=== PATIENT | male | born 1980 | race Caucasian/White ===

== ENCOUNTER 2019-01-23 01:54 | Emergency (ER) | payer MEDICAID ==
[2019-01-23] MEDS ORDERED: Lactated Ringers 1,000 ML IV SCH (02:30)
--- NOTE | 2019-01-23 02:33 | EDM.PDOC ---
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 States he is doing well on day of discharge which was today tolerating diet ambulating woke up this evening in significant pain did have a fever at home had taken Tylenol denies any difficulty breathing no chest pain no shortness of breath, EMS did provide fentanyl in route as well as Zofran which provided relief for his nausea and improvement in pain control Back Pain Score (Numeric/FACES): 5 - Related Data Allergies Allergy/AdvReac Type Severity Reaction Status Date / Time Sulfa (Sulfonamide Allergy Rash Verified 01/23/19 02:02 Antibiotics) Home Meds: Home Meds Sertraline [Zoloft] 100 mg PO DAILY 02/20/15 [History] Acetaminophen [Acetaminophen Extra Strength] 1,000 mg PO Q6H PRN 01/23/19 [ History] Cyclobenzaprine HCl 5 mg PO TID PRN 01/23/19 [History] oxyCODONE HCl [Oxycodone HCl] 5 - 10 mg PO Q4H PRN 01/23/19 [History] Past Medical History Gastrointestinal History: Reports: GERD Musculoskeletal History: Reports: Back Pain, Chronic, Fracture Psychiatric History: Reports: Anxiety, Depression - Infectious Disease History Infectious Disease History: Reports: Chicken Pox, Mononucleosis - Past Surgical History GI Surgical History: Reports: Cholecystectomy Male Surgical History: Reports: Other (See Below) Other Male Surgeries/Procedures: ktwisted testicles Neurological Surgical History: Reports: Lumbar Spine, Sacral Spine, Spinal Fusion Musculoskeletal Surgical History: Reports: Arthroscopic Knee Social & Family History - Tobacco Use Smoking Status *Q: Never Smoker - Caffeine Use Caffeine Use: Reports: None - Recreational Drug Use Recreational Drug Use: Yes ED ROS GENERAL - Review of Systems Review Of Systems: See Below Constitutional: Reports: Fever, Chills HEENT: Reports: No Symptoms Respiratory: Reports: No Symptoms Cardiovascular: Reports: No Symptoms GI/Abdominal: Reports: No Symptoms : Reports: No Symptoms Musculoskeletal: Reports: No Symptoms Skin: Reports: No Symptoms Neurological: Reports: No Symptoms ED EXAM, SEPSIS - Physical Exam Exam: See Below Exam Limited By: No Limitations General Appearance: Alert, Mild Distress Respiratory/Chest: No Respiratory Distress, Lungs Clear, Normal Breath Sounds, No Accessory Muscle Use Cardiovascular: Regular Rate, Rhythm, No Murmur GI/Abdominal Exam: Soft, Non-Tender Back: Normal Inspection, Decreased Range of Motion, Other (Surgical wound is clean dry and intact). No: CVA Tenderness (R), CVA Tenderness (L) Extremities: Normal Inspection, Normal Range of Motion, Non-Tender Course - Vital Signs Last Recorded V/S: Last Vital Signs Temp 99.8 F 01/23/19 03:48 Pulse 102 H 01/23/19 03:48 Resp 20 01/23/19 03:48 BP 134/75 01/23/19 03:48 Pulse Ox 96 01/23/19 03:48 - Orders/Labs/Meds Orders: Active Orders 24 hr Category Date Time Status Vital Signs [RC] Q1H Care 01/23/19 02:27 Active CULTURE BLOOD [BC] Urgent Lab 01/23/19 02:30 Received CULTURE BLOOD [BC] Urgent Lab 01/23/19 02:38 Received CULTURE URINE [RM] Urgent Lab 01/23/19 04:22 Ordered HYDROmorphone [Dilaudid] Med 01/23/19 04:22 Once 1 mg IVPUSH ONETIME ONE Lactated Ringers [Ringers, Lactated] 1,000 ml Med 01/23/19 02:30 Active IV ASDIRECTED Blood Culture x2 Reflex Set [OM.PC] Urgent Oth 01/23/19 02:27 Ordered Medication Orders Lactated Ringer's (Ringers, Lactated) 1,000 mls @ 999 mls/hr IV ASDIRECTED LEELA Last Admin: 01/23/19 02:38 Dose: 999 mls/hr Labs: Laboratory Tests 01/23/19 01/23/19 01/23/19 Range/Units 02:30 02:30 02:30 WBC 10.0 (4.5-11.0) K/uL RBC 3.91 L (4.30-5.90) M/uL Hgb 11.9 L D (12.0-15.0) g/dL Hct 36.2 L (40.0-54.0) % MCV 93 (80-98) fL MCH 30 (27-31) pg MCHC 33 (32-36) % Plt Count 213 (150-400) K/uL Neut % (Auto) 74 H (36-66) % Lymph % (Auto) 14 L (24-44) % [place] % (Auto) 10 H (2-6) % Eos % (Auto) 2 (2-4) % Baso % (Auto) 0 (0-1) % Sodium 136 L (140-148) mmol/L Potassium 3.7 (3.6-5.2) mmol/L Chloride 98 L (100-108) mmol/L Carbon Dioxide 27 (21-32) mmol/L Anion Gap 14.7 H (5.0-14.0) mmol/L BUN 9 (7-18) mg/dL Creatinine 1.2 (0.8-1.3) mg/dL Est Cr Clr Drug Dosing 94.33 mL/min Estimated GFR (MDRD) > 60 (>60) Glucose 112 H (74-106) mg/dL Lactic Acid 1.4 (0.4-2.0) mmol/L Calcium 8.3 L (8.5-10.1) mg/dL Total Bilirubin 0.3 D (0.2-1.0) mg/dL AST 26 (15-37) U/L ALT 31 (12-78) U/L Alkaline Phosphatase 53 (46-116) U/L C-Reactive Protein 6.76 H (0.0-0.3) mg/dL Total Protein 6.4 (6.4-8.2) g/dL Albumin 3.0 L (3.4-5.0) g/dL Globulin 3.4 (2.3-3.5) g/dL Albumin/Globulin Ratio 0.9 L (1.2-2.2) Urine Color Urine Appearance Urine pH (4.5-8.0) Ur Specific [place] (1.008-1.030) Urine Protein (NEGATIVE) mg/dL Urine Glucose (UA) (NEGATIVE) mg/dL Urine Ketones (NEGATIVE) mg/dL Urine Occult Blood (NEGATIVE) Urine Nitrite (NEGAITVE) Urine Bilirubin (NEGATIVE) Urine Urobilinogen (NORMAL) mg/dL Ur Leukocyte Esterase (NEGATIVE) Urine RBC (0-5) Urine WBC (0-5) Ur Epithelial Cells Amorphous Sediment Urine Bacteria Urine Mucus 01/23/19 Range/Units 03:20 WBC (4.5-11.0) K/uL RBC (4.30-5.90) M/uL Hgb (12.0-15.0) g/dL Hct (40.0-54.0) % MCV (80-98) fL MCH (27-31) pg MCHC (32-36) % Plt Count (150-400) K/uL Neut % (Auto) (36-66) % Lymph % (Auto) (24-44) % [place] % (Auto) (2-6) % Eos % (Auto) (2-4) % Baso % (Auto) (0-1) % Sodium (140-148) mmol/L Potassium (3.6-5.2) mmol/L Chloride (100-108) mmol/L Carbon Dioxide (21-32) mmol/L Anion Gap (5.0-14.0) mmol/L BUN (7-18) mg/dL Creatinine (0.8-1.3) mg/dL Est Cr Clr Drug Dosing mL/min Estimated GFR (MDRD) (>60) Glucose (74-106) mg/dL Lactic Acid (0.4-2.0) mmol/L Calcium (8.5-10.1) mg/dL Total Bilirubin (0.2-1.0) mg/dL AST (15-37) U/L ALT (12-78) U/L Alkaline Phosphatase (46-116) U/L C-Reactive Protein (0.0-0.3) mg/dL Total Protein (6.4-8.2) g/dL Albumin (3.4-5.0) g/dL Globulin (2.3-3.5) g/dL Albumin/Globulin Ratio (1.2-2.2) Urine Color Yellow Urine Appearance Clear Urine pH 7.0 (4.5-8.0) Ur Specific [place] 1.010 (1.008-1.030) Urine Protein Negative (NEGATIVE) mg/dL Urine Glucose (UA) Normal (NEGATIVE) mg/dL Urine Ketones Negative (NEGATIVE) mg/dL Urine Occult Blood Negative (NEGATIVE) Urine Nitrite Negative (NEGAITVE) Urine Bilirubin Negative (NEGATIVE) Urine Urobilinogen Normal (NORMAL) mg/dL Ur Leukocyte Esterase Negative (NEGATIVE) Urine RBC Not seen (0-5) Urine WBC Not seen (0-5) Ur Epithelial Cells Not seen Amorphous Sediment Few Urine Bacteria Not seen Urine Mucus Not seen Meds: Medications Generic Name Dose Route Start Last Admin Trade Name Freq PRN Reason Stop Dose Admin Lactated Ringer's 1,000 mls @ 999 mls/hr 01/23/19 02:30 01/23/19 02:38 Ringers, Lactated IV 999 mls/hr ASDIRECTED LEELA Administration Discontinued Medications Generic Name Dose Route Start Last Admin Trade Name Freq PRN Reason Stop Dose Admin Fentanyl 50 mcg 01/23/19 03:41 01/23/19 03:47 Sublimaze IVPUSH 01/23/19 03:42 50 mcg ONETIME ONE Administration Departure - Departure Time of Disposition: 04:25 Disposition: Home, Self-Care 01 Condition: Fair Clinical Impression: Fever Qualifiers: Fever type: unspecified Qualified Code(s): R50.9 - Fever, unspecified - Discharge Information Referrals: PCP,None [Primary Care Provider] - Forms: ED Department Discharge Additional Instructions: Continued use Tylenol as needed for fever control, continue with pain medication , if symptoms get worse please return to the emergency department or contact your neurosurgeon for further direction - My Orders Last 24 Hours: My Active Orders 01/23/19 02:27 Vital Signs [RC] Q1H Blood Culture x2 Reflex Set [OM.PC] Urgent 01/23/19 02:30 CULTURE BLOOD [BC] Urgent Lactated Ringers [Ringers, Lactated] 1,000 ml IV ASDIRECTED 01/23/19 02:38 CULTURE BLOOD [BC] Urgent 01/23/19 04:22 CULTURE URINE [RM] Urgent HYDROmorphone [Dilaudid] 1 mg IVPUSH ONETIME ONE - Assessment/Plan Last 24 Hours: My Active Orders 01/23/19 02:27 Vital Signs [RC] Q1H Blood Culture x2 Reflex Set [OM.PC] Urgent 01/23/19 02:30 CULTURE BLOOD [BC] Urgent Lactated Ringers [Ringers, Lactated] 1,000 ml IV ASDIRECTED 01/23/19 02:38 CULTURE BLOOD [BC] Urgent 01/23/19 04:22 CULTURE URINE [RM] Urgent HYDROmorphone [Dilaudid] 1 mg IVPUSH ONETIME ONE Plan: Assessment Acuity = acute Site and laterality = fever complicated in a patient with recent laminectomy postop day 4 Etiology = unclear etiology Manifestations = none Location of injury = Home Lab values = CBC CMP lactic acid all within normal limits CRP elevated at 6.76 chest x-ray shows no acute process urinalysis unremarkable blood cultures and urine cultures are pending Plan Called discussed case with Dr. Monteiro neurosurgery at [address] [place] [id number] recommendations at this time are watchful waiting continue with pain control continue with Tylenol as needed if symptoms get worse he will require an MRI and transfer back to [place] This note was dictated using Ringly voice recognition software please call with any questions on syntax or grammar.
[2019-01-23] MEDS ORDERED: fentaNYL 100 MCG/2 ML SDV IVPUSH ONE (03:41)
[2019-01-23 03:49] VITALS: BP 134/75
--- NOTE | 2019-01-23 04:04 | CRLCR ---
Indication: Fever, recent lumbar spine surgery Technique: Chest 1 view Comparison: None Findings/Impression: Normal cardiac size. Linear atelectasis at both lung bases. No focal consolidation, effusion, or pneumothorax. Osseous structures appear intact.. Dictated by Kylie Butler MD @ Jan 23 2019 4:00AM Signed by Dr. Kylie Butler @ Jan 23 2019 4:03AM
[2019-01-23] MEDS ORDERED: HYDROmorphone 1 MG/ML Syringe IVPUSH ONE (04:22)
== END 2019-01-23 04:58 | disposition home or self-care (01) ==
LOC: JP.ED 01:54
DX: R50.9 Fever, unspecified (principal); Z88.2 Allergy status to sulfonamides
CPT/HCPCS: 36415; 71045; 80053; 81001; 83605; 85025; 86140; 87040; 87086; 96361; 96374; 96376; 99284; J1170; J3010; J7120

== ENCOUNTER 2023-10-11 11:18 | Emergency (ER) | payer MEDICAID ==
[2023-10-11] MEDS ORDERED: Morphine 4 MG/ML Syringe IVPUSH PRN (11:29)
[2023-10-11] MEDS ORDERED: Sodium Chloride 0.9% 10 ML Syringe FLUSH PRN ×2 (11:29→12:53)
[2023-10-11] MEDS ORDERED: Aspirin 81 MG Tab.Chew PO ONE (11:29)
[2023-10-11] MEDS ORDERED: Albuterol/Ipratropium 3.0-0.5 MG/3 ML Neb Soln NEB ONE (11:38)
[2023-10-11 11:44] LABS: BASOPHILS ABSOLUTE AUTO 0.01 K/uL (0.00-0.10); BASOPHILS PERCENT AUTO 0.3 % (0.1-1.3); EOSINOPHILS ABSOLUTE AUTO 0.02 K/uL (0.00-0.40); EOSINOPHILS PERCENT AUTO 0.6 % (0.0-5.4); HEMATOCRIT 42.5 % (38.4-49.7); HEMOGLOBIN 15.3 g/dL (12.9-16.9); IMMATURE GRAN PERCENT AUTO 3.2 % (0.0-0.7); LYMPHOCYTES ABSOLUTE AUTO 0.35 K/uL (0.8-3.3); LYMPHOCYTES PERCENT AUTO 11.3 % (11.4-47.7); MEAN CORPUSCULAR HEMOGLOBIN 30.2 pg (31.6-35.5); MEAN CORPUSCULAR VOLUME 83.8 fL (81.4-99.0); MONOCYTES ABSOLUTE AUTO 0.08 K/uL (0.20-0.90); MONOCYTES PERCENT AUTO 2.6 % (3.3-12.6); NEUTROPHILS ABSOLUTE AUTO 2.54 K/uL (1.0-7.6); PLATELET COUNT,PLT 174 K/uL (130-375); RED BLOOD CELL COUNT 5.07 M/uL (4.14-5.76); WHITE BLOOD CELL COUNT,WBC 3.1 K/uL (3.2-11.0)
[2023-10-11] MEDS ORDERED: Sodium Chloride 0.9% 1,000 ML IV SCH ×2 (11:45→12:30)
[2023-10-11] MEDS ORDERED: Sodium Chloride 0.9% 1,000 ML IV ONE (11:50)
[2023-10-11 11:52] LABS: A/G RATIO 0.5 (1.2-2.2); ALANINE AMINOTRANSFERASE,ALT 67 U/L (12-78); ALBUMIN 2.3 g/dL (3.4-5.0); ALKALINE PHOSPHATASE 201 U/L (46-116); ANION GAP 19.9 mmol/L (5.0-14.0); ASPARTATE AMNIOTRANSFERASE,AST 92 U/L (15-37); BILIRUBIN TOTAL 1.7 mg/dL (0.2-1.0); BLOOD UREA NITROGEN,BUN 37 mg/dL (7-18); CALCIUM 7.9 mg/dL (8.5-10.1); CARBON DIOXIDE,CO2 21 mmol/L (21-32); CHLORIDE,CL 92 mmol/L (100-108); CREATININE 2.2 mg/dL (0.8-1.3); ESTIMATED GFR 37 mL/min (>60); GLUCOSE RANDOM 76 mg/dL (74-106); POTASSIUM,K 2.9 mmol/L (3.6-5.2); PROTEIN TOTAL,TP 7.2 g/dL (6.4-8.2); SODIUM,NA 130 mmol/L (140-148)
[2023-10-11 11:53] LABS: TROPONIN I HIGH SENSITIVITY 100.6 pg/mL (<=60.3)
[2023-10-11] MEDS ORDERED: Potassium Chloride 20 MEQ in Premix Bag 1 BAG IV ONE (12:31)
[2023-10-11] MEDS ORDERED: Potassium Chloride 20 MEQ Tab.ER PO ONE (12:31)
[2023-10-11] MEDS ORDERED: cefTRIAXone 2 GM in Sodium Chloride 0.9% 100 ML IV SCH (13:00)
[2023-10-11] MEDS ORDERED: Sodium Chloride 0.9% 100 ML IV SCH (13:00)
[2023-10-11] MEDS ORDERED: Iopamidol 755 Mg/ML 100 ML Bottle IV SCH (13:00)
[2023-10-11 13:07] LABS: CORONAVIRUS COVID-19 NAA NEGATIVE (NEGATIVE); INFLUENZA A NAA NEGATIVE (NEGATIVE); INFLUENZA B NAA NEGATIVE (NEGATIVE); RESPIRATORY SYNCYTIAL VIR NAA NEGATIVE (NEGATIVE)
[2023-10-11] MEDS ORDERED: Norepinephrine Bit/D5W Premix 4 MG in Premix Bag 1 BAG IV SCH (13:15)
[2023-10-11 13:53] LABS: LACTIC ACID 2.4 mmol/L (0.4-2.0)
[2023-10-11] MEDS ORDERED: Azithromycin 500 MG in Sodium Chloride 0.9% 250 ML IV SCH (14:00)
[2023-10-11] MEDS ORDERED: Vasopressin 100 UNITS in Dextrose 5% in Water 250 ML IV SCH ×2 (15:00)
[2023-10-11] MEDS ORDERED: Hydrocortisone Sodium Succinate 100 MG/2 ML SDV IVPUSH ONE (16:08)
[2023-10-11] MEDS ORDERED: Lactated Ringers 1,000 ML IV ONE (16:11)
[2023-10-11] MEDS ORDERED: Hydrocortisone Sodium Succinate 100 MG/2 ML SDV IV ONE (16:15)
[2023-10-11] MEDS ORDERED: Codeine/guaiFENesin 10-100 MG/5 ML Syrup 5 ML Cup PO ONE (16:33)
[2023-10-11 17:21] VITALS: BP 111/67; PULSE 113
== END 2023-10-11 17:30 ==
LOC: JP.ED 11:18
DX: A41.9 Sepsis, unspecified organism (principal); R65.21 Severe sepsis with septic shock; N17.9 Acute kidney failure, unspecified; J18.9 Pneumonia, unspecified organism; Z88.2 Allergy status to sulfonamides
CPT/HCPCS: 0241U; 36415; 71045; 71275; 80053; 83605; 84145; 84484; 85025; 85379; 86140; 87040; 93005; 94640; 96361; 96365; 96366; 96368; 96375; 99285; A9270; J0456; J0696; J1720; J2270; J3480; J3490; J7030; J7050; J7120; Q9967; 93010; J7620

== ENCOUNTER 2025-05-29 14:35 | Emergency (ER) | payer MEDICAID | END 2025-05-29 15:30 | disposition left against medical advice (07) | LOC: JP.ED 14:35 | DX: Z53.21 Procedure and treatment not carried out due to patient leaving prior to being seen by health care provider (principal) ==